=== PATIENT | male | born 1965 | race Caucasian/White ===

== ENCOUNTER 2022-02-25 08:11 | Day surgery (SDC) | payer MEDICAID ==
[~2022-02-25] VITALS: Ht 190.5 cm; Wt 108.0 kg
[2022-02-25] MEDS ORDERED: ACETAMINOPHEN I.V. 1000 MG 100 ML IV ONE (10:31)
[2022-02-25] MEDS ORDERED: PROPOFOL 200MG/ 20ML VIAL (DIPRIVAN) IV ONE (10:43)
[2022-02-25] MEDS ORDERED: fentaNYL CITRATE 250 MCG/5 ML AMP IV ONE (10:43)
[2022-02-25] MEDS ORDERED: MIDAZOLAM HCL 5 MG/5 ML VIAL IVP ONE (10:43)
[2022-02-25] MEDS ORDERED: ROCURONIUM BROMIDE 10 MG/ML (ZEMURON) IV ONE (10:43)
[2022-02-25] MEDS ORDERED: ALBUTEROL MDI INHALATION 8 GM INH INH ONE (10:43)
[2022-02-25] MEDS ORDERED: DESFLURANE 15 MIN GAS INH ONE (10:43)
[2022-02-25] MEDS ORDERED: ONDANSETRON HCL 4 MG/2 ML VIAL IVP ONE (10:43)
[2022-02-25] MEDS ORDERED: WATER FOR IRRIGATION,STERILE 1,000 ML IRRIG.SOLN IR ONE (10:43)
[2022-02-25] MEDS ORDERED: NS IRRIG SOLN 1000 ML IR ONE (10:43)
[2022-02-25] MEDS ORDERED: SUGAMMADEX SODIUM 200 MG/2 ML VIAL IV ONE (10:43)
[2022-02-25] MEDS ORDERED: NS 1000 ML IV.SOLN IV ONE (10:43)
[2022-02-25] MEDS ORDERED: LR 1,000 ML IV.SOLN IV ONE (10:43)
[2022-02-25] MEDS ORDERED: DEXAMETHASONE SOD PHOSPHATE 4 MG/ML VIAL IVP ONE (10:43)
[2022-02-25] MEDS ORDERED: LIDOCAINE 2%, 20 ML MDV INJ ONE (10:43)
[2022-02-25] MEDS ORDERED: MEPERIDINE HCL/PF 25 MG/ML DISP.SYRIN IVP PRN (11:45)
[2022-02-25] MEDS ORDERED: hydrALAZINE HCL 20 MG/ML VIAL IVP PRN (11:45)
[2022-02-25] MEDS ORDERED: LR 1,000 ML IV SCH (11:45)
[2022-02-25] MEDS ORDERED: METOCLOPRAMIDE HCL 10 MG/2 ML VIAL IVP PRN (11:45)
[2022-02-25] MEDS ORDERED: HYDROmorphone 1 MG/ML INJ. CARTRIDGE IVP PRN ×2 (11:45)
[2022-02-25] MEDS ORDERED: MIDAZOLAM HCL 2 MG/2 ML VIAL (VERSED) IVP PRN (11:45)
[2022-02-25] MEDS ORDERED: MIDAZOLAM HCL 2 MG/2 ML VIAL (VERSED) IVP ONE ×2 (14:15→14:30)
[2022-02-25] MEDS ORDERED: MIDAZOLAM HCL 2 MG/2 ML VIAL (VERSED) ONE (14:19)
[2022-02-25] MEDS ORDERED: HYDROmorphone 2 MG/ML VIAL ONE (14:44)
[2022-02-25] MEDS ORDERED: ALBUTEROL MDI INHALATION 8 GM INH INH SCH (15:00)
[2022-02-25 17:45] VITALS: BP_SYST 135
== END 2022-02-25 18:00 | disposition home or self-care (01) ==
LOC: SDS 08:11 → SMU 08:13 → SDS 18:00
PROVIDERS: ATTEND Otolaryngology
DX: J34.89 Other specified disorders of nose and nasal sinuses (principal); D38.5 Neoplasm of uncertain behavior of other respiratory organs; J31.0 Chronic rhinitis; J32.9 Chronic sinusitis, unspecified; J45.909 Unspecified asthma, uncomplicated; F41.9 Anxiety disorder, unspecified; E03.9 Hypothyroidism, unspecified; G47.33 Obstructive sleep apnea (adult) (pediatric); Z99.89 Dependence on other enabling machines and devices; Z79.899 Other long term (current) drug therapy; Z20.822 Contact with and (suspected) exposure to COVID-19
CPT/HCPCS: 36415 ×2; 31298; 30140; 30520; 31255; 31256; 88305; 88311; 87426; U0003; J3490; J1100; J2001; J2250; J3465; J2405; J2704; J3010; J1170; J7120; J7030; C1726; J0131